=== PATIENT | female | born 2000 | race Caucasian/White ===

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

== ENCOUNTER 2021-12-16 17:12 | Inpatient (IN) | payer OTHER ==
[~2021-12-16] VITALS: Ht 172.7 cm; Wt 77.0 kg
[~2021-12-16 17:12] MED LIST changes: +MACROBID 100 M100 MG PO
[2021-12-16 18:06] LABS: HEMOGLOBIN 11.1 gm/dl (12.3-15.3); RED BLOOD COUNT 3.78 M/UL (4.00-5.10)
[2021-12-16 18:29] LABS: BUN/CREATININE RATIO 13 (0-10)
[2021-12-17] MEDS ORDERED: PRENATAL VITAM1 EAC5 PO (02:54)
[2021-12-17 04:29] LABS: HEMOGLOBIN 10.7 gm/dl (12.3-15.3); RED BLOOD COUNT 3.69 M/UL (4.00-5.10); WHITE BLOOD COUNT 6.2 K/UL (4.5-11.0)
[2021-12-17] MEDS ORDERED: IBUPROFEN600 MG PO (13:15)
[2021-12-17] MEDS ORDERED: COLACE 100MG C100 MG PO (13:15)
[2021-12-18 05:26] LABS: HEMOGLOBIN 10.2 gm/dl (12.3-15.3)
== END 2021-12-19 16:28 | disposition home or self-care (01) | DRG 807 ==
LOC: GENOP 17:12 → OB 17:34
PROVIDERS: Obstetrics & Gynecology; ADMIT Obstetrics & Gynecology
PROC: 10E0XZZ Delivery of Products of Conception, External Approach (ICD-10-PCS; principal; 2021-12-17)
PROC: 10907ZC Drainage of Amniotic Fluid, Therapeutic from Products of Conception, Via Natural or Artificial Opening (ICD-10-PCS; 2021-12-17)
PROC: 4A1HXCZ Monitoring of Products of Conception, Cardiac Rate, External Approach (ICD-10-PCS; 2021-12-17)
PROC: 3E0234Z Introduction of Serum, Toxoid and Vaccine into Muscle, Percutaneous Approach (ICD-10-PCS; 2021-12-17)
DX: O13.4 Gestational [pregnancy-induced] hypertension without significant proteinuria, complicating childbirth (principal); Z37.0 Single live birth; Z3A.39 39 weeks gestation of pregnancy; Z20.822 Contact with and (suspected) exposure to COVID-19; Z81.8 Family history of other mental and behavioral disorders; Z82.49 Family history of ischemic heart disease and other diseases of the circulatory system; Z98.890 Other specified postprocedural states; O36.61X0 Maternal care for excessive fetal growth, first trimester, not applicable or unspecified; O70.0 First degree perineal laceration during delivery; Z23 Encounter for immunization; Z28.310 Unvaccinated for COVID-19
CPT/HCPCS: 36415; 80053; 81001; 82570; 83518; 83615; 84156; 84550; 85014; 85018; 85025; 90715; J2590; J7120; U0002